=== PATIENT | female | born 1965 | race American Indian/Alaskan Native ===

== ENCOUNTER 2017-10-12 14:37 | Emergency (ER) | payer SELFPAY ==
[2017-10-12 14:46] VITALS: BP 121/84
[2017-10-12] MEDS ORDERED: TORADOL IM ONE (16:36)
--- NOTE | 2017-10-12 16:37 | Emergency Department Report ---
Blank Doc - Documentation Documentation: Patient is a 51-year-old female who states that she's had a headache for the past 3 days. Patient's taken ibuprofen with minimal relief. Patient says the throbbing pain as global across the entire period say she felt near syncopal earlier today in the shower. Patient denies any nausea vomiting diarrhea fevers chills sore throat cough cold congestion or neck stiffness at this time. Patient will be given a shot of Toradol for headache and also since this is a new headache that she's never felt before have a CT of the head
--- NOTE | 2017-10-12 18:01 | Emergency Department Report ---
ED Headache HPI - General Chief Complaint: Headache Stated Complaint: HEADACHE Time Seen by Provider: 10/12/17 16:27 Source: patient, family - History of Present Illness Initial Comments: Patient is a 51-year-old female who states that she's had a headache for the past 3 days. She said headache has been on and off since April and she is here to be checked. Pain is worse today located to the front of her head. Patient's taken ibuprofen with minimal relief. Patient says the throbbing pain as global across the entire period say she felt near syncopal earlier today in the shower. Patient denies any nausea vomiting diarrhea fevers chills sore throat cough or neck stiffness at this time. Denies any abdominal or back pain or any urinary symptoms. She does report some nasal congestion, runny nose. Denies any cough, shortness of breath or chest pain. Pain is 7-8 out of 10 and feels like pressure. Aggravated by moving around and better at rest then and some relief with ibuprofen. Timing/Duration: increasing, episodic, waxing and waning, other (5 months) Quality: severe, achy, pressure Head Injury Location: frontal Recent Head Trauma: occasional headaches Modifying Factors: improves with: medication, rest Associated Symptoms: nasal congestion, nasal drainage. denies: confusion, fatigue, facial pain, fever/chills, flushing, loss of consciousness, nausea/ vomiting, numbness in legs/feet, rash, seizures, sinus infection, stiff neck, vision changes, weakness Allergies/Adverse Reactions: Allergies No Known Allergies Allergy (Verified 10/12/17 16:46) Home Medications: Ambulatory Orders Acetaminophen/Codeine [Tylenol /Codeine # 3 tab] 1 tab PO Q6H PRN #12 tab Amoxicillin/K Clav Tab [Augmentin 875 mg] 1 tab PO Q12HR 10 Days #20 tab Cetirizine HCl [ZyrTEC] 10 mg PO QAM 14 Days #14 capsule 10/12/17 Fluticasone [Flonase] 1 spray NS QDAY 14 Days #1 bottle 10/12/17 Ibuprofen [Motrin] 600 mg PO Q8H PRN #12 tablet 10/12/17 ED Review of Systems ROS: Stated complaint: HEADACHE Other details as noted in HPI Constitutional: denies: chills, fever Eyes: denies: eye pain, eye discharge, vision change ENT: congestion. denies: ear pain, throat pain, dental pain, hearing loss, epistaxis Respiratory: denies: cough, shortness of breath, SOB with exertion, SOB at rest , stridor, wheezing Cardiovascular: denies: chest pain, palpitations, edema, syncope Gastrointestinal: other (poor appetite and she denies any weight loss for more then 10 pounds over the last 3 months). denies: abdominal pain, nausea, vomiting, diarrhea, constipation, hematemesis, melena, hematochezia Genitourinary: denies: urgency, dysuria, frequency, hematuria, discharge Musculoskeletal: myalgia. denies: back pain, joint swelling, arthralgia Skin: denies: rash, lesions Neurological: headache. denies: weakness, numbness, paresthesias, confusion, abnormal gait, vertigo Psychiatric: denies: depression ED Past Medical Hx - Past Medical History Previous Medical History?: No - Surgical History Past Surgical History?: No - Family History Family history: no significant - Social History Smoking Status: Never Smoker Substance Use Type: None - Medications Home Medications: Home Medications Medication Instructions Recorded Confirmed Last Taken Type Acetaminophen/Codeine [Tylenol 1 tab PO Q6H PRN #12 tab 10/12/17 Unknown Rx /Codeine # 3 tab] Amoxicillin/K Clav Tab [Augmentin 1 tab PO Q12HR 10 Days #20 tab 10/12/17 Unknown Rx 875 mg] Cetirizine HCl [ZyrTEC] 10 mg PO QAM 14 Days #14 capsule 10/12/17 Unknown Rx Fluticasone [Flonase] 1 spray NS QDAY 14 Days #1 bottle 10/12/17 Unknown Rx Ibuprofen [Motrin] 600 mg PO Q8H PRN #12 tablet 10/12/17 Unknown Rx ED Physical Exam - General Limitations: No Limitations General appearance: alert, in no apparent distress - Head Head exam: Present: atraumatic, normocephalic, normal inspection, other (normal exam) - Eye Eye exam: Present: normal appearance, PERRL, EOMI. Absent: conjunctival injection, nystagmus, periorbital swelling, periorbital tenderness Pupils: Present: normal accommodation - ENT ENT exam: Present: normal orophraynx, mucous membranes moist, normal external ear exam, other (bilateral nasal mucosa congested with erythema. Clear drainage .positive frontal and maxillary sinuses tender to palpate.). Absent: TM's normal bilaterally (bilateral TM congested without erythema) - Neck Neck exam: Present: normal inspection, tenderness, full ROM, other (no C-spine tenderness). Absent: meningismus, lymphadenopathy, thyromegaly - Respiratory Respiratory exam: Present: normal lung sounds bilaterally. Absent: respiratory distress, chest wall tenderness, accessory muscle use - Cardiovascular Cardiovascular Exam: Present: regular rate, normal rhythm, normal heart sounds. Absent: systolic murmur, diastolic murmur - GI/Abdominal GI/Abdominal exam: Present: soft, normal bowel sounds. Absent: distended, tenderness, guarding, rebound, rigid, organomegaly, mass, bruit, pulsatile mass , hernia - Extremities Exam Extremities exam: Present: normal inspection, full ROM, normal capillary refill , other (no clubbing, cyanosis or edema. +2 pulses to all extremities and no neurovascular compromise). Absent: tenderness, pedal edema, joint swelling, calf tenderness - Back Exam Back exam: Present: normal inspection, full ROM, other (ambulates without any difficulties). Absent: tenderness, CVA tenderness (R), CVA tenderness (L), muscle spasm, paraspinal tenderness, vertebral tenderness, rash noted - Neurological Exam Neurological exam: Present: alert, oriented X3, normal gait, reflexes normal. Absent: motor sensory deficit - Expanded Neurological Exam Expanded Neurological exam: Absent: innattentive, memory loss-remote event, memory loss- recent event, ataxia, receptive aphasia, expressive aphasia, total aphasia, tremor, protecting the airway Patient oriented to: Present: person, place, time Speech: Present: fluid speech Cranial nerves: EOM's Intact: Normal, Gag Reflex: Normal, Tongue Deviation: Normal, Nystagmus: Normal, Facial Sensation: Normal Cerebellar function: Romberg: Normal Upper motor neuron: Pronator Drift: Normal, Sensory Extinction: Normal Sensory exam: Upper Extremity Light Touch: Normal, Upper Extremity Pin Prick: Normal, Upper Extremity Temperature: Normal, UE 2 Point Discrimination: Normal, Lower Extremity Light Touch: Normal, Lower Extremity Pin Prick: Normal, Lower Extremity Temperature: Normal, LE 2 Point Discrimination: Normal Motor strength exam: RUE: 5, LUE: 5, RLE: 5, LLE: 5 Best Eye Response (Trosper): (4) open spontaneously Best Motor Response (Trosper): (6) obeys commands Best Verbal Response (Trosper): (5) oriented Lucinda Total: 15 - Psychiatric Psychiatric exam: Present: normal affect, normal mood - Skin Skin exam: Present: warm, dry, intact, normal color. Absent: rash ED Course Vital Signs 10/12/17 10/12/17 14:41 21:06 Temperature 97.5 F L Pulse Rate 76 69 Respiratory 18 17 Rate Blood Pressure 121/84 O2 Sat by Pulse 100 97 Oximetry - Reevaluation(s) Reevaluation #1: 10/12/17 20:44 Patient was screened by Dr. Gordon and he ordered Toradol 60 mg IM for patient which patient received then she said her headache is better. ED Medical Decision Making - Lab Data Lab Results 10/12/17 Range/Units 17:57 Urine Color Yellow (Yellow) Urine Turbidity Clear (Clear) Urine pH 5.0 (5.0-7.0) Ur Specific Walker 1.016 (1.003-1.030) Urine Protein <15 mg/dl (Negative) mg/dL Urine Glucose (UA) Neg (Negative) mg/dL Urine Ketones Neg (Negative) mg/dL Urine Blood Neg (Negative) Urine Nitrite Neg (Negative) Urine Bilirubin Neg (Negative) Urine Urobilinogen < 2.0 (<2.0) mg/dL Ur Leukocyte Esterase Sm (Negative) Urine WBC (Auto) 4.0 (0.0-6.0) /HPF Urine RBC (Auto) 5.0 (0.0-6.0) /HPF U Epithel Cells (Auto) 2.0 (0-13.0) /HPF Urine Bacteria (Auto) 1+ (Negative) /HPF Urine Yeast (Budding) Few /HPF Urine HCG, Qual Negative (Negative) Urine culture sent and pending - Radiology Data Radiology results: report reviewed CT scan of the head and brain without contrast dictated by radiology and report reviewed by myself and no acute intracranial abnormality. Patient with mild mucosal thickening of the paranasal sinuses. Please see below for report Patient: LÓPEZ SANCHEZ MR#: [id number] : 1965 Acct:[id number] Age/Sex: 51 / F ADM Date: 10/12/17 Loc: ED Attending Dr: Ordering Physician: ARUN GORDON MD Date of Service: 10/12/17 Procedure(s): CT head/brain wo con Accession Number(s): [id number] cc: ARUN GORDON MD CT scan FINAL REPORT EXAM: CT HEAD/BRAIN WO CON HISTORY: headache, newonset COMPARISON: None available. TECHNIQUE: Axial images obtained skull base through vertex. FINDINGS: No acute intracranial hemorrhage, midline shift or pathologic extra axial fluid collection. Ventricles and cisterns are normal in size and configuration for the patient's age. Castano-white differentiation preserved. Calvarium grossly intact. Ocular globes are grossly unremarkable. Mild mucosal thickening of the visualized paranasal sinuses. Mastoid air cells are clear. IMPRESSION: No grossly acute intracranial abnormality. Transcribed By: LMA Dictated By: KARLA ADAMS MD Electronically Authenticated By: KARLA ADAMS MD Signed Date/Time: 10/12/171851 DD/ 51 TD/TT: 10/12/171851 - Medical Decision Making ED course: This is a 51-year-old female patient who reports she just had a baby in April 2017 and she's been having headache to the front of her head on and off but today's worse. She reports that she almost fainted but did not. She is reporting generalized a can. Denies any abdominal or back pain. Denies any urinary symptoms. Denies any fever chills or nausea or vomiting. Denies any blurred vision or difficulty walking or talking. She is also complaining that she has very little appetite but denies any weight loss or more than 10 pounds over the last 3 months. She's been taken ibuprofen without any relief. Dr. Arun Gordon screened patient and orders placed. I saw and examined patient and she is neurologically intact, normal back exam, normal neck and abdominal exam.. Patient does have maxillary and frontal sinuses tenderness with bilateral ear congestion and bilateral nasal congestion and erythema with clear drainage. Patient had CT scan of the head with and without contrast which was dictated by radiologist and report reviewed by myself and patient with no acute intracranial processes but she has some mucosal paranasal frightening. Patient with pansinusitis which is mild but has been going on since April,, she has a urinalysis done and she has trace leukocyte Estrace and positive bacteria. Urine culture was sent. I discussed diagnosis and treatment plan with patient and she voiced understanding. Her pain is controlled after Toradol was given. A/P 1: Pansinusitis- patient will be discharged home on Augmentin, Flonase and Zyrtec. CT scan of the head revealed paranasal mucosal thickening 2: UTI-UA with positive leukocyte esterase and bacteria and urine culture sent. Augmentin will cover urinary tract infection 3: Headache-Toradol 60 mg IM times one dose which relieved her headache. CT scan of the head reveals no acute intracranial processes Given patient referred to neurologist and I'll discharge her home on Motrin and Tylenol 3 Education given medication, diagnosis and that antibiotics will cover both her urinary tract infection and her sinus infection. Educated on nasal saline wash. And also need to follow-up with neurologist and primary care physician. Patient does not have access to healthcare outpatient so I'll refer her to [facility] for primary care physician and I told her she needs to call neurologist and they will set up a payment plan with her so they can do further evaluation if her headache is not better after medication. She Voice understanding of discharge plans and education Patient discharged home with family in stable condition with prescription for Augmentin, Tylenol 3 and Motrin, Zyrtec and Flonase. Her vital signs are stable she is afebrile and she is nontoxic. Patient given prescription She is to follow-up with her primary care physician/[facility] in 2 days and I told her to call tomorrow to schedule an appointment and also to follow up with neurologist in 2 days to call tomorrow to schedule an appointment. She is voiced understanding and she is feeling better after Toradol 60 mg IM. - Differential Diagnosis ICH, brain aneurysm, brain tumor, headache of unknown cause, sinusitis Critical care attestation.: If time is entered above; I have spent that time in minutes in the direct care of this critically ill patient, excluding procedure time. ED Disposition Clinical Impression: Acute pansinusitis, unspecified Qualifiers: Recurrence: not specified as recurrent Qualified Code(s): J01.40 - Acute pansinusitis, unspecified UTI (urinary tract infection) Qualifiers: Urinary tract infection type: acute cystitis Hematuria presence: without hematuria Qualified Code(s): N30.00 - Acute cystitis without hematuria Headache Qualifiers: Headache type: unspecified Headache chronicity pattern: acute headache Intractability: not intractable Qualified Code(s): R51 - Headache Disposition: DC-01 TO HOME OR SELFCARE Is pt being admited?: No Does the pt Need Aspirin: No Condition: Stable Instructions: Urinary Tract Infection in Women (ED), Sinusitis (ED), Acute Headache (ED) Additional Instructions: Please increase her fluid intake Flush nostrils with saline nasal spray take antibiotic as prescribed for UTI and sinusitis F/U with primary care physician as instructed Follow-up with neurologist as instructed If his symptoms worsen, return to the emergency room Prescriptions: Acetaminophen/Codeine [Tylenol /Codeine # 3 tab] 1 tab PO Q6H PRN #12 tab PRN Reason: severe pain Amoxicillin/K Clav Tab [Augmentin 875 mg] 1 tab PO Q12HR 10 Days #20 tab Cetirizine HCl [ZyrTEC] 10 mg PO QAM 14 Days #14 capsule Fluticasone [Flonase] 1 spray NS QDAY 14 Days #1 bottle Ibuprofen [Motrin] 600 mg PO Q8H PRN #12 tablet PRN Reason: mild to moderate pain Referrals: YOLANDA DO MD [Staff Physician] - 10/13/17 [facility] [Outside] - 10/13/17 PRIMARY MD LANETTE [Primary Care Provider] - 10/13/17 Forms: Work/School Release Form(ED)
[2017-10-12 18:16] LABS: Bacteria,Urine 1+ /HPF (Negative); Bilirubin,Urine NEG (Negative); Blood,Urine NEG (Negative); Color,Urine Yellow (Yellow); Protein,Urine <15 mg/dL mg/dL (Negative); Urobilinogen,Urine < 2.0 mg/dL (<2.0)
[2017-10-12 18:17] LABS: HCG Qualitative,Urine Negative (Negative)
--- NOTE | 2017-10-12 18:56 | Cat Scan Report ---
FINAL REPORT EXAM: CT HEAD/BRAIN WO CON HISTORY: headache, newonset COMPARISON: None available. TECHNIQUE: Axial images obtained skull base through vertex. FINDINGS: No acute intracranial hemorrhage, midline shift or pathologic extra axial fluid collection. Ventricles and cisterns are normal in size and configuration for the patient's age. Castano-white differentiation preserved. Calvarium grossly intact. Ocular globes are grossly unremarkable. Mild mucosal thickening of the visualized paranasal sinuses. Mastoid air cells are clear. IMPRESSION: No grossly acute intracranial abnormality.
== END 2017-10-12 21:06 | disposition home or self-care (01) ==
LOC: ED 14:37
DX: J01.40 Acute pansinusitis, unspecified (principal); N30.00 Acute cystitis without hematuria
CPT/HCPCS: 70450; 81001; 81025; 87086; 96372; 99284; J1885